=== PATIENT | male | born 1945 | race Caucasian/White ===

== ENCOUNTER 2016-07-31 06:05 | Emergency (ER) | payer BC, MEDICARE ==
[2016-07-31 06:29] VITALS: BP 129/102
--- NOTE | 2016-07-31 07:02 | EDM.PDOC ---
<Kyrie Johnson - Last Filed: 07/31/16 11:29> ED HPI GENERAL MEDICAL PROBLEM - General Time Seen by Provider: 07/31/16 06:10 - Related Data Allergies Allergy/AdvReac Type Severity Reaction Status Date / Time No Known Allergies Allergy Verified 07/31/16 06:30 Home Meds: Home Meds *Lorazepam 07/31/16 [History] *Potassium 07/31/16 [History] atoMOXetine [Strattera] 40 mg PO DAILY 07/31/16 [History] traZODone 50 mg PO BEDTIME 07/31/16 [History] Course - Vital Signs Last Recorded V/S: Last Vital Signs Temp 37.5 C 07/31/16 06:25 Pulse 78 07/31/16 06:25 Resp 14 07/31/16 06:25 BP 129/102 H 07/31/16 06:25 Pulse Ox 97 07/31/16 06:25 - Orders/Labs/Meds Meds: Medications Discontinued Medications Generic Name Dose Route Start Last Admin Trade Name Dany PRN Reason Stop Dose Admin Bacitracin 1 dose 07/31/16 08:09 07/31/16 08:50 Bacitracin Oint 1 Gm TOP 07/31/16 08:10 1 dose ONETIME ONE Administration - Re-Assessments/Exams Free Text/Narrative Re-Assessment/Exam: 07/31/16 08:12 Patient seen and evaluated by Dr. Rico, x-rays ordered. Ankle x-ray is negative, and knee x-ray is negative, thumb x-ray does show a small chip fractures of the volar aspect of the IP joint of both the distal and proximal phalange. There is also a mild to moderate effusion of the right knee. A six- inch Mitchel wrap was applied to the knee, a thumb spica splint to the right hand and copies of the x-rays were given to the patient. He is going to increase activity as tolerated and encouraged rechecking with orthopedics later this week when he returns to the [facility]. Departure - Departure Disposition: Home, Self-Care 01 Clinical Impression: Fracture of thumb Qualifiers: Encounter type: initial encounter Fracture type: closed Phalanx: proximal Fracture alignment: nondisplaced Laterality: right Qualified Code(s): S62.514A - Nondisplaced fracture of proximal phalanx of right thumb, initial encounter for closed fracture Abrasion of arm, left Qualifiers: Encounter type: initial encounter Qualified Code(s): S40.812A - Abrasion of left upper arm, initial encounter Right knee sprain Qualifiers: Encounter type: initial encounter Involved ligament of knee: unspecified ligament Qualified Code(s): S83.91XA - Sprain of unspecified site of right knee , initial encounter - Discharge Information Instructions: Thumb Fracture, Knee Sprain, [id number], Abrasion, [id number] Referrals: PCP,None [Primary Care Provider] - Forms: ED Department Discharge Care Plan Goals: Wrap knee for comfort, splint the thumb until recheck. Keep abrasions clean while healing if possible. I would encourage a reche[place] with [place] ED HPI Trauma - General Chief Complaint: Lower Extremity Injury/Pain Stated Complaint: INJURED FROM A FALL Time Seen by Provider: 07/31/16 06:48 - History of Present Illness Allergies/ADRs: Allergies No Known Allergies Allergy (Verified 07/31/16 06:30) Home Medications: Ambulatory Orders *Lorazepam 07/31/16 *Potassium 07/31/16 atoMOXetine [Strattera] 40 mg PO DAILY 07/31/16 [Confirmed 07/31/16] traZODone 50 mg PO BEDTIME 07/31/16 [Confirmed 07/31/16] Departure - Departure Time of Disposition: 08:49 Disposition: Home, Self-Care 01 Condition: good Clinical Impression: Fracture of thumb Qualifiers: Encounter type: initial encounter Fracture type: closed Phalanx: proximal Fracture alignment: nondisplaced Laterality: right Qualified Code(s): S62.514A - Nondisplaced fracture of proximal phalanx of right thumb, initial encounter for closed fracture Abrasion of arm, left Qualifiers: Encounter type: initial encounter Qualified Code(s): S40.812A - Abrasion of left upper arm, initial encounter Right knee sprain Qualifiers: Encounter type: initial encounter Involved ligament of knee: unspecified ligament Qualified Code(s): S83.91XA - Sprain of unspecified site of right knee , initial encounter Instructions: Thumb Fracture, Knee Sprain, [id number], Abrasion, [id number] Referrals: PCP,None [Primary Care Provider] - Forms: ED Department Discharge Care Plan Goals: Wrap knee for comfort, splint the thumb until recheck. Keep abrasions clean while healing if possible. I would encourage a recheck with orthopedics when you return to the [facility] area. <Rehan Mcnair - Last Filed: 08/04/16 20:17> Past Medical History HEENT History: Reports: Hard of hearing, Impaired vision Psychiatric History: Reports: ADHD Social & Family History - Tobacco Use Smoking Status *Q: Never Smoker - Caffeine Use Caffeine Use: Reports: Soda - Recreational Drug Use Recreational Drug Use: No Review of Systems - Review of Systems Review Of Systems: ROS reveals no pertinent complaints other than HPI. Trauma Exam - Physical Exam Exam: See Below Course - Orders/Labs/Meds Meds: Medications Discontinued Medications Generic Name Dose Route Start Last Admin Trade Name Frejonna PRN Reason Stop Dose Admin Bacitracin 1 dose 07/31/16 08:09 07/31/16 08:50 Bacitracin Oint 1 Gm TOP 07/31/16 08:10 1 dose ONETIME ONE Administration Departure - Departure Time of Disposition: 08:30 ED HPI Trauma - General Source: Reports: Patient History Limitations: Reports: No limitations - History of Present Illness INITIAL COMMENTS - FREE TEXT/NARRATIVE: History of present illness: [70-year-old male was working on or off yesterday and as follows and then slid down. his right leg got wrapped up in his left leg to help stop the fall. He continued to work but presents here with right knee pain and some swelling and right ankle pain. He also has pain of his right thumb and cannot bend it at the DIP joint. He also has a small abrasion to the left little finger and left forearm. No other injuries. He states he is hoping he can just get his knee wrapped up and continue to work today.] Review of systems: As per history of present illness and below otherwise all systems reviewed and negative. Past medical history: As per history of present illness and as reviewed below otherwise noncontributory. Surgical history: As per history of present illness and as reviewed below otherwise noncontributory. Social history: No reported history of drug or alcohol abuse. Family history: As per history of present illness and as reviewed below otherwise noncontributory. Physical exam: Gen.: He is pleasant and in no acute distress. He was ambulatory and coming into the ER. HEENT: Atraumatic, normocephalic, pupils reactive, negative for conjunctival pallor or scleral icterus, mucous membranes moist, throat clear, neck supple, nontender, trachea midline. Lungs: Clear to auscultation, breath sounds equal bilaterally, chest nontender. Heart: S1S2, regular Abdomen: Soft, nondistended, nontender. Pelvis: Stable nontender. Genitourinary: Deferred. Rectal: Deferred. Extremities: Neuro: Awake, alert, oriented. Exam nonfocal. Diagnostics: [ x-rays are pending of the knee ankle and thumb ] Therapeutics: [] Impression: [Injuries to the right knee ankle and thumb with an abrasion to the left forearm and left little finger ] Plan: [ ER physician coming will assume care. ] Definitive disposition and diagnosis as appropriate pending reevaluation and review of above.
[2016-07-31] MEDS ORDERED: Bacitracin Oint 1 GM U/D Packet TOP ONE (08:09)
--- NOTE | 2016-07-31 09:07 | CR ---
Ankle Min 3V Rt HISTORY: Pain COMPARISON: None FINDINGS: No fracture or dislocation. No bony destructive process.
--- NOTE | 2016-07-31 09:11 | CR ---
Fingers Thumb Rt F5 HISTORY: Injury. COMPARISON: None FINDINGS: Soft tissue swelling. No radiopaque foreign body. Mild degenerative change. I do not see d efinitive bony fracture on the first image there is some cortical irregularity at the margin of the interphalangeal joint not seen on the second and third image. This could be projectional or degenera tive. Subtle injury to the cortex not completely excluded.
--- NOTE | 2016-07-31 09:26 | CR ---
Knee 3V Rt HISTORY: Pain COMPARISON: None FINDINGS: No fracture or significant effusion. Mild degenerative change with small marginal osteophy te permission from the femoral condyles and medial tibial plateau. Slight medial joint space narrowi ng.
== END 2016-07-31 08:49 | disposition home or self-care (01) ==
LOC: JP.ED 06:05
DX: S62.514A Nondisplaced fracture of proximal phalanx of right thumb, initial encounter for closed fracture (principal); S40.812A Abrasion of left upper arm, initial encounter; S83.91XA Sprain of unspecified site of right knee, initial encounter; F90.9 Attention-deficit hyperactivity disorder, unspecified type; Z79.899 Other long term (current) drug therapy; W19.XXXA Unspecified fall, initial encounter
CPT/HCPCS: 29125; 73140-26-F5; 73140-F5; 73562-26-RT; 73562-RT; 73610-26-RT; 73610-RT; 99284-25